=== PATIENT | male | born 1940 | race Caucasian/White ===

== ENCOUNTER → 2016-09-15 | Outpatient (CLI) | payer MEDICARE ==
[~2016-09-15] MED LIST: /ATOR40TA OR; ACET65TA OR; ASPI81TA45 OR; ATEN25TA OR; BIMATOPROST OU; KLOR10TA OR; LIPI10TA OR; LISI5TAB OR; METF500T4 OR; MULTIVIT OR; OMEP20TA7 OR; OYST500T OR; TENORETIC 50/25 OR; VITA100T5 OR; VITA400C OR; [UNRECOGNIZED DRUG - CODE]
[2016-09-15 12:02] LABS: CALCIUM LEVEL 8.4 MG/DL (8.8-10.2); CREATININE FOR GFR 1.59 MG/DL (0.70-1.30); GLOMERULAR FILTRATION RATE 45.3 (>42); POTASSIUM SERUM 4.3 MEQ/L (3.5-5.1)
== END ==
LOC: M LAB 11:05
PROVIDERS: ATTEND Thoracic Surgery (Cardiothoracic Vascular Surgery)
DX: N28.9 Disorder of kidney and ureter, unspecified (principal)

== ENCOUNTER 2016-10-01 09:54 | Inpatient (IN) | payer MEDICARE ==
[~2016-10-01] VITALS: Ht 177.8 cm; Wt 77.9 kg
[2016-10-01] MEDS ORDERED: COLA100C5 PO (10:12)
[2016-10-01] MEDS ORDERED: BIMA1SOL OU (10:12)
[2016-10-01] MEDS ORDERED: AMIO200T PO (10:12)
[2016-10-01] MEDS ORDERED: ASPI325T24 PO (10:12)
[2016-10-01] MEDS ORDERED: METO50TA7 PO (10:12)
[2016-10-01] MEDS ORDERED: MULTCAP11 PO (10:12)
[2016-10-01] MEDS ORDERED: CALC500T36 PO (10:12)
[2016-10-01] MEDS ORDERED: FURO20TA2 PO (10:12)
[2016-10-01 10:44] LABS: BASO % 0.1 % (0.0-1.0); EOS # 0.1 K/mm3 (0.0-0.50); EOS % 0.8 % (0.0-3.0); LARGE UNSTAINED CELL # 0.3 K/mm3 (0.0-0.4); LARGE UNSTAINED CELL % 1.7 % (0.0-4.0); LYMPH % 4.1 % (24.0-44.0); MEAN CORPUSCULAR HEMOGLOBIN 31.8 pg (27.0-33.0); MEAN CORPUSCULAR HGB CONC 33.2 g/dl (32.0-36.5); MEAN CORPUSCULAR VOLUME 95.8 fl (80.0-96.0); MONO # 1.4 K/mm3 (0.0-0.8); MONO % 7.7 % (0.0-5.0); NEUTROPHILS # 15.1 K/mm3 (1.8-7.7); NEUTROPHILS % 85.7 % (36.0-66.0); PLATELET COUNT, AUTOMATED 209 k/mm3 (150-450); RED CELL DISTRIBUTION WIDTH 14.4 % (11.5-14.5); WHITE BLOOD COUNT 17.6 K/mm3 (4.0-10.0)
--- NOTE | 2016-10-01 10:44 | REP ---
Clinical: Chest pain . Comparison: 03/21/2014 . Findings: The mediastinum and cardiac silhouette are stable and within normal limits for portable technique. Evidence for prior sternotomy. The The lung lowery demonstrate chronic changes without acute consolidation, effusion, or pneumothorax. Skeletal structures are intact. Impression: No obvious acute cardiopulmonary process. Signed by Giovani Rouse MD 10/01/2016 10:36 A
[2016-10-01 10:55] LABS: ALBUMIN 3.2 GM/DL (3.2-5.2); ALBUMIN/GLOBULIN RATIO 0.78 (1.00-1.93); BILIRUBIN,DIRECT 0.4 MG/DL (0.0-0.2); BILIRUBIN,TOTAL 1.6 MG/DL (0.2-1.0); CALCIUM LEVEL 8.5 MG/DL (8.8-10.2); CREATININE FOR GFR 1.53 MG/DL (0.70-1.30); GLOMERULAR FILTRATION RATE 47.3 (>42); TOTAL PROTEIN 7.3 GM/DL (6.4-8.2)
[2016-10-01] MEDS ORDERED: MULT1CHW39 PO (15:18)
[2016-10-01] MEDS ORDERED: CALC600T60 PO (15:18)
[2016-10-01] MEDS ORDERED: OMEP20CA3 PO (15:18)
[2016-10-01] MEDS ORDERED: TYLE325T5 PO (15:18)
[2016-10-01] MEDS ORDERED: K-TA10TA2 PO (15:18)
[2016-10-01] MEDS ORDERED: ATOR40TA75 PO (15:18)
[2016-10-01] MEDS ORDERED: FURO40TA2 PO (15:18)
[2016-10-01] MEDS ORDERED: DEXTROSE 50% 50 ML SYRINGE IV PRN (16:30)
[2016-10-01] MEDS ORDERED: IPRATROPIUM 0.5MG/ALBUTEROL 2.5MG INH SOL UD 3ML (DUONEB)(J7620) NEB PRN (16:30)
[2016-10-01] MEDS ORDERED: CEFTRIAXONE SOD IV SCH (17:00)
[2016-10-01] MEDS ORDERED: FLUID PLACE HOLDER IV SCH (17:00)
[2016-10-01] MEDS: HumaLOG INSULIN (NovoLOG) PER UNIT SC SCH ×2 (17:30→20:54)
[2016-10-01 18:33] VITALS: BP 156/67
[2016-10-01] MEDS: ACETAMINOPHEN TAB 650MG DOSE (2X325MG) PO PRN ×2 (19:06→23:33)
[2016-10-01] MEDS: IPRATROPIUM 0.5MG/ALBUTEROL 2.5MG INH SOL UD 3ML (DUONEB)(J7620) NEB SCH (19:21)
[2016-10-01 20:10] VITALS: BP 133/61
[2016-10-01] MEDS: ENOXAPARIN 40 MG/0.4 ML SYRINGE (J1650) SC SCH (21:23)
[2016-10-01] MEDS: cefTRIAXone SOD 2 GM in D5W MINI-BAG PLUS 50 ML IV SCH (21:24)
[2016-10-01] MEDS: POTASSIUM CHLORIDE 10 MEQ SR TABLET PO SCH (23:33)
[2016-10-01] MEDS: ATORVASTATIN 20 MG TAB PO SCH (23:33)
[2016-10-01] MEDS: METOPROLOL TART 50 MG TAB PO SCH (23:33)
[2016-10-02] MEDS: IPRATROPIUM 0.5MG/ALBUTEROL 2.5MG INH SOL UD 3ML (DUONEB)(J7620) NEB SCH ×4 (02:00→20:20)
[2016-10-02 05:52] VITALS: BP 198/60
[2016-10-02 06:08] LABS: BASO % 0.2 % (0.0-1.0); EOS # 0.2 K/mm3 (0.0-0.50); EOS % 1.2 % (0.0-3.0); LARGE UNSTAINED CELL # 0.2 K/mm3 (0.0-0.4); LARGE UNSTAINED CELL % 1.7 % (0.0-4.0); LYMPH # 0.9 K/mm3 (1.5-4.5); LYMPH % 4.8 % (24.0-44.0); MEAN CORPUSCULAR HEMOGLOBIN 31.5 pg (27.0-33.0); MEAN CORPUSCULAR HGB CONC 33.2 g/dl (32.0-36.5); MONO # 0.9 K/mm3 (0.0-0.8); MONO % 6.6 % (0.0-5.0); NEUTROPHILS # 11.4 K/mm3 (1.8-7.7); NEUTROPHILS % 85.7 % (36.0-66.0); PLATELET COUNT, AUTOMATED 190 k/mm3 (150-450); RED CELL DISTRIBUTION WIDTH 14.2 % (11.5-14.5); WHITE BLOOD COUNT 13.3 K/mm3 (4.0-10.0)
[2016-10-02 06:34] LABS: ALBUMIN 2.8 GM/DL (3.2-5.2); ALBUMIN/GLOBULIN RATIO 0.68 (1.00-1.93); CALCIUM LEVEL 8.6 MG/DL (8.8-10.2); CREATININE FOR GFR 1.39 MG/DL (0.70-1.30); GLOMERULAR FILTRATION RATE 52.9 (>42); POTASSIUM SERUM 3.4 MEQ/L (3.5-5.1); TOTAL PROTEIN 6.9 GM/DL (6.4-8.2)
--- NOTE | 2016-10-02 06:54 | HPE ---
DATE OF ADMISSION: 10/01/2016 PRIMARY CARE DOCTOR: ([facility]) ENGINEERING LAB TECHNICIAN: Dr. Armenta. CHIEF COMPLAINT: Fever. HISTORY OF PRESENT ILLNESS: The patient is a 76-year-old male who has had recent double bypass with aortic valve replacement on 09/04, presenting with fever that began last night, was 103 degrees Fahrenheit. The following morning, the fever recurred, and this time was 102. The patient also was vomiting and felt sick. He took Tylenol. By the time he arrived to the emergency department (ED), his temperature was normal, and vomiting had also resolved. He denies any history of headache, shortness of breath, chest pain, palpitations. REVIEW OF SYSTEMS: 10-point systems assessed, all negative except as stated above in history of present illness (HPI). PAST MEDICAL HISTORY: 1. Diet-controlled diabetes. 2. Hypertension. 3. Hyperlipidemia. 4. Coronary artery disease. 5. Gastroesophageal reflux disease (GERD) with a history of Jansen's esophagus. 6. Glaucoma. 7. Peripheral artery disease. PAST SURGICAL HISTORY: As mentioned above in HPI. The patient also had stenting done in the year 1999. FAMILY HISTORY: Mother had coronary artery disease (CAD) and a bypass as well. Dad had prostate cancer. An older sister who at the age of 54 had a history of CAD, uterine cancer, kidney failure. Parents had glaucoma. SOCIAL HISTORY: The patient is an ex smoker. He quite in August of 1999. Prior to that, smoked 1-2 packs a day for 40 years. Currently drinks alcohol occasionally. Denies illicit drug use. He is , has three children. He is currently retired. ALLERGIES TO MEDICATIONS: None listed. MEDICATIONS: - amiodarone 200 mg once daily - aspirin 325 mg once a day - atorvastatin 40 mg at nighttime - docusate sodium 100 mg daily - metoprolol 50 mg by mouth twice a day - omeprazole 20 mg daily - oyster calcium shell 500 mg daily - bimatoprost eye drops 0.03% to both eyes - multivitamin chew once daily - Lasix 40 mg once a day - potassium chloride 10 mEq once a day - Tylenol 650 mg by mouth every six hours as needed for pain and fever PHYSICAL EXAMINATION: VITAL SIGNS: Blood pressure 132/65, pulse 78, respiratory rate 18, oxygen saturation 92% on room air. Temperature 97.3 degrees Fahrenheit. GENERAL: He is alert and oriented to person, place and time. In no distress. Is pleasant, cooperative. HEENT: Pupils equal, round, and reactive to light. Extraocular muscles intact. Anicteric sclerae. Mucous membranes moist. CARDIOVASCULAR: S1, S2 present with regular rate. CHEST: The patient has a scar in the middle of the chest which is healing appropriately. No signs of infection. RESPIRATORY: Lungs clear to auscultation bilaterally. GASTROINTESTINAL (GI): Abdomen is soft, nontender, nondistended. Bowel sounds are normal. MUSCULOSKELETAL: No edema, cyanosis or calf tenderness. Pulses are palpable in all extremities. SKIN: Warm, dry, acyanotic without rash, ecchymosis. NEUROLOGIC: With nonfocal findings. LABORATORY DATA: Hematology: White blood cell count of 18,000, hemoglobin 10, hematocrit 29, platelets of 209. Chemistry: Sodium 134, potassium 4.0, chloride 98, bicarbonate 28, BUN 21, creatinine 1.53, glucose 121, lactic acid 1.0, calcium 8.5. LFTs within normal limits. Troponin I 0.02. BNP 519. Albumin 3.2, lipase 191. TSH 0.770. Urinalysis: Urine color is yellow. Protein negative. Ketones negative. Glucose negative. Nitrites negative. Bilirubin negative. Leukocyte esterase +3. WBC high, red blood cell 6, bacteria +3. IMAGING: Chest x-ray shows no obvious acute cardiopulmonary process. ASSESSMENT: A 76-year-old male status post recent cardiac surgery, presenting with fever, elevated white blood cell count with left shift and positive urinalysis. IMPRESSION: 1. Fever. 2. Cystitis. 3. Ruling out endocarditis. 4. Anemia from blood loss. 5. History of diet-controlled diabetes. 6. History of hypertension. 7. History of hyperlipidemia. 8. History of Jansen's esophagus. PLAN: The patient is admitted, is on Rocephin antibiotics. Awaiting culture results and echocardiogram. Resume all home medications. Deep venous thrombosis (DVT) and gastrointestinal (GI) prophylaxis with Lovenox and proton pump inhibitor (PPI).
[2016-10-02] MEDS: HumaLOG INSULIN (NovoLOG) PER UNIT SC SCH ×4 (07:30→20:51)
[2016-10-02] MEDS ORDERED: POTASSIUM CHLORIDE 10 MEQ SR TABLET PO ONE (08:00)
[2016-10-02 08:32] VITALS: BP 118/52
[2016-10-02] MEDS: AMIODARONE 200 MG TAB (PACERONE) PO SCH (08:41)
[2016-10-02] MEDS: CALCIUM CARBONATE 500 MG CHEW U/D PO SCH ×3 (08:41→17:29)
[2016-10-02] MEDS: METOPROLOL TART 50 MG TAB PO SCH ×2 (08:42→21:03)
[2016-10-02] MEDS: DOCUSATE SODIUM 100 MG CAP PO SCH (08:42)
[2016-10-02] MEDS: OMEPRAZOLE 20 MG CAP PO SCH (08:42)
[2016-10-02] MEDS: OYSTER SHELL CALCIUM 500 MG TAB PO SCH (08:42)
[2016-10-02] MEDS: FUROSEMIDE 40 MG TAB PO SCH (08:42)
[2016-10-02] MEDS: ASPIRIN ENTERIC 325 MG TAB PO SCH (08:43)
[2016-10-02] MEDS: ACETAMINOPHEN TAB 650MG DOSE (2X325MG) PO PRN (08:55)
[2016-10-02 09:37] LABS: ERYTHROCYTE SEDIMENTATION RATE 87 mm/hr (0-20)
[2016-10-02 14:00] VITALS: BP 110/57
--- NOTE | 2016-10-02 14:18 | IPNPDOC ---
Subjective Date Seen The patient was seen on 10/02/16. Subjective Chief Complaint/HPI The patient is a 76-year-old male admitted with a reason for visit of Cystitis, Fever. General: Denies: Chills, Night Sweats Constitutional: Denies: Chills, Fever Eyes: Denies: Pain, Vision change ENT: Denies: Head Aches, Ear Pain Pulmonary: Denies: Dyspnea, Cough Cardiovascular: Denies: Chest Pain, Palpitations Gastrointestinal: Denies: Nausea, Vomiting, Abdominal Pain Hematologic: Denies: Bruising, Bleeding Excessively Musculoskeletal: Reports: Other Symptoms (Flank Pain) Objective Physical Examination General Exam: Positive: Alert, Cooperative, No Acute Distress ENT Exam: Positive: Atraumatic, Mucous membr. moist/pink Neck Exam: Negative: JVD Chest Exam: Positive: Clear to auscultation, Normal air movement Heart Exam: Positive: Rate Normal, Normal S1, Normal S2 Abdomen Exam: Positive: Soft, Negative: Tenderness Extremity Exam: Negative: Tenderness, Swelling Psych Exam: Positive: Oriented x 3 Assessment /Plan Plan/VTE VTE Prophylaxis Ordered?: Yes Plan Fever/Chills, Flank Pain likely 2/2 UTI/Cystitis Urinalysis suggestive of underlying UTI/ Cystitis Urine culture pending We'll continue the patient on Rocephin White blood cell count trending downward Patient states that he is feeling much better at this time, we will continue to monitor his progress History of PAD, CAD s/p CABG x 2, and AVR on 09/[address] [facility] The patient is not displaying any clinical signs or symptoms of underlying endocarditis However blood cultures have been ordered 2-D echo has also been ordered Continue aspirin, metoprolol, statin We will continue to monitor the patient's progress Diet-controlled diabetes mellitus We will continue the patient on insulin sliding scale for now ? Hx of Atrial Fibrillation Patient noted to be in NSR at this time Cont Amoidarone Dyslipidemia Continue statin History of COPD, stable Continue albuterol as ordered GERD Continue PPI DVT prophylaxis Lovenox VS, I&O, 24H, Fishbone Vital Signs/I&O Vital Signs Date Time Temp Pulse Resp B/P (MAP) Pulse Ox O2 Delivery O2 Flow Rate FiO2 10/02/16 08:42 90 118/52 10/02/16 05:52 98.0 20 94 10/01/16 20:10 Room Air I&O- Last 24 Hours up to 6 AM 10/02/16 06:00 Intake Total 0 ml Output Total 500 ml Balance -500 ml Laboratory Data 24H LABS Laboratory Tests 2 10/01/16 20:10: Bedside Glucose (Misc Panel) 165H 10/02/16 05:45: White Blood Count 13.3H, Red Blood Count 2.98L, Hemoglobin 9.4L, Hematocrit 28.3L, Mean Corpuscular Volume 95.0, Mean Corpuscular Hemoglobin 31.5, Mean Corpuscular Hemoglobin Concent 33.2, Red Cell Distribution Width 14.2, Platelet Count 190, Neutrophils (%) (Auto) 85.7H, Lymphocytes (%) (Auto) 4.8L, Monocytes (%) (Auto) 6.6H, Eosinophils (%) (Auto) 1.2, Basophils (%) (Auto) 0.2, Neutrophils # (Auto) 11.4H, Lymphocytes # (Auto) 0.9L, Monocytes # (Auto) 0.9H, Eosinophils # (Auto) 0.2, Basophils # (Auto) 0.0, Large Unclassified Cells % 1.7 , Large Unclassified Cells # 0.2, Erythrocyte Sedimentation Rate 87H, Anion Gap 8, Glomerular Filtration Rate 52.9, Blood Urea Nitrogen 20H, Creatinine 1.39H, Sodium Level 136, Potassium Level 3.4L, Chloride Level 100, Carbon Dioxide Level 28, Calcium Level 8.6L, Aspartate Amino Transf (AST/SGOT) 12L, Alanine Aminotransferase (ALT/SGPT) 18, Alkaline Phosphatase 102, Total Bilirubin 1.0, Total Protein 6.9, Albumin 2.8L, C-Reactive Protein, Quantitative 17.60H, Albumin/Globulin Ratio 0.68L 10/02/16 11:13: Bedside Glucose (Misc Panel) 146H CBC/BMP Laboratory Tests 10/02/16 05:45 Red Blood Count 2.98 L, Mean Corpuscular Volume 95.0, Mean Corpuscular Hemoglobin 31.5, Mean Corpuscular Hemoglobin Concent 33.2, Red Cell Distribution Width 14.2, Neutrophils (%) (Auto) 85.7 H, Lymphocytes (%) (Auto) 4.8 L, Monocytes (%) (Auto) 6.6 H, Eosinophils (%) (Auto) 1.2, Basophils (%) ( Auto) 0.2, Neutrophils # (Auto) 11.4 H, Lymphocytes # (Auto) 0.9 L, Monocytes # (Auto) 0.9 H, Eosinophils # (Auto) 0.2, Basophils # (Auto) 0.0, Calcium Level 8.6 L, Aspartate Amino Transf (AST/SGOT) 12 L, Alanine Aminotransferase (ALT/ SGPT) 18, Alkaline Phosphatase 102, Total Bilirubin 1.0, Total Protein 6.9, Albumin 2.8 L Microbiology Microbiology 10/01/16 Blood Culture - Preliminary, Resulted No growth after 24 hours . All specim... 10/01/16 Blood Culture - Preliminary, Resulted No growth after 24 hours . All specim... 10/01/16 Urine Culture, Received Pending SMITA SHEPHERD MD Oct 02, 2016 14:18
[2016-10-02] MEDS: ATORVASTATIN 20 MG TAB PO SCH (21:02)
[2016-10-02] MEDS: cefTRIAXone SOD 2 GM in D5W MINI-BAG PLUS 50 ML IV SCH (21:02)
[2016-10-02] MEDS: ENOXAPARIN 40 MG/0.4 ML SYRINGE (J1650) SC SCH (21:03)
[2016-10-02] MEDS: POTASSIUM CHLORIDE 10 MEQ SR TABLET PO SCH (21:03)
[2016-10-02 22:00] VITALS: BP 111/58
[2016-10-03] MEDS: IPRATROPIUM 0.5MG/ALBUTEROL 2.5MG INH SOL UD 3ML (DUONEB)(J7620) NEB SCH ×2 (01:52→07:26)
[2016-10-03 06:00] VITALS: BP_SYST 126; BP_SYST 148; BP_DIAS 60; BP_DIAS 70
[2016-10-03 06:07] LABS: BASO % 0.2 % (0.0-1.0); EOS # 0.2 K/mm3 (0.0-0.50); EOS % 2.1 % (0.0-3.0); LARGE UNSTAINED CELL # 0.2 K/mm3 (0.0-0.4); LARGE UNSTAINED CELL % 2.6 % (0.0-4.0); LYMPH # 0.8 K/mm3 (1.5-4.5); MEAN CORPUSCULAR HEMOGLOBIN 31.2 pg (27.0-33.0); MEAN CORPUSCULAR VOLUME 94.4 fl (80.0-96.0); MONO # 0.5 K/mm3 (0.0-0.8); MONO % 6.4 % (0.0-5.0); NEUTROPHILS # 6.4 K/mm3 (1.8-7.7); NEUTROPHILS % 81.7 % (36.0-66.0); PLATELET COUNT, AUTOMATED 175 k/mm3 (150-450); RED CELL DISTRIBUTION WIDTH 14.3 % (11.5-14.5); WHITE BLOOD COUNT 7.8 K/mm3 (4.0-10.0)
--- NOTE | 2016-10-03 07:13 | ECGEPIP ---
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
[2016-10-03] MEDS: HumaLOG INSULIN (NovoLOG) PER UNIT SC SCH ×2 (07:30→12:00)
[2016-10-03 07:43] LABS: ALBUMIN 2.7 GM/DL (3.2-5.2); ALBUMIN/GLOBULIN RATIO 0.69 (1.00-1.93); BILIRUBIN,TOTAL 0.6 MG/DL (0.2-1.0); CALCIUM LEVEL 8.5 MG/DL (8.8-10.2); CREATININE FOR GFR 1.26 MG/DL (0.70-1.30); GLOMERULAR FILTRATION RATE 59.2 (>42); POTASSIUM SERUM 4.3 MEQ/L (3.5-5.1); TOTAL PROTEIN 6.6 GM/DL (6.4-8.2)
[2016-10-03 08:39] VITALS: BP 137/72
[2016-10-03] MEDS: DOCUSATE SODIUM 100 MG CAP PO SCH (08:39)
[2016-10-03] MEDS: AMIODARONE 200 MG TAB (PACERONE) PO SCH (08:39)
[2016-10-03] MEDS: METOPROLOL TART 50 MG TAB PO SCH (08:39)
[2016-10-03] MEDS: ASPIRIN ENTERIC 325 MG TAB PO SCH (08:39)
[2016-10-03] MEDS: CALCIUM CARBONATE 500 MG CHEW U/D PO SCH ×2 (08:39→12:15)
[2016-10-03] MEDS: OYSTER SHELL CALCIUM 500 MG TAB PO SCH (08:39)
[2016-10-03] MEDS: OMEPRAZOLE 20 MG CAP PO SCH (08:39)
[2016-10-03] MEDS: FUROSEMIDE 40 MG TAB PO SCH (08:39)
[2016-10-03] MEDS ORDERED: LEVA1TAB2 PO (10:32)
--- NOTE | 2016-10-03 11:06 | DS.PDOC ---
Discharge Summary General Date of Admission Oct 01, 2016 at 16:22 Date of Discharge 10/03/16 Discharge Summary PROCEDURES PERFORMED DURING STAY: None. ADMITTING DIAGNOSES: 1. .UTI/Pyelonephritis 2. .Leukocytosis DISCHARGE DIAGNOSES: 1. .UTI/Pyelonephritis 2. .Leukocytosis COMPLICATIONS/CHIEF COMPLAINT: Cystitis, Fever. HISTORY OF PRESENT ILLNESS: . 76-year-old male with past medical history of diet-controlled diabetes mellitus , hypertension, dyslipidemia, GERD, peripheral artery disease, coronary artery disease status post CABG 2 and aortic valve replacement on September 04, 2016 at [facility] presented to the ER with a chief complaint of fevers at home over the last 3 days prior to his presentation to the ER. The patient states that he has been febrile with recurrent temperatures of 102. He noted a feeling of generalized weakness, associated with fevers/chills and nausea with vomiting. In addition, the patient also stated that he had some flank pain on the right side. In the ER, patient was noted to have an elevated white blood cell count of 17.6 K. In addition, the patient's urinalysis was suggestive of a urinary tract infection. The patient was admitted to the hospitalist service for further evaluation and management. During hospitalization, the patient was treated for UTI/pyelonephritis with Rocephin. The patient's white blood cell count subsequently normalized and the patient was afebrile over the ensuing 48 hours. The patient's blood cultures were noted to be negative. The patient's antibiotics have been transitioned to by mouth. We did order 2-D echocardiogram for this patient in view of his recent aortic valve replacement surgery. I've advised patient to follow-up with his PCP for the results of this test, as the results are currently pending and may take upwards of 48 hours. At this time, the patient states that these feelings much better and is eager to return home. I have advised patient to follow-up with his primary care physician within one week. In addition, I have advised the patient to return to the ER if his symptoms were to return or persist. DISCHARGE MEDICATIONS: Please see below. ALLERGIES: Please see below. PHYSICAL EXAMINATION ON DISCHARGE: VITAL SIGNS: Please see below. General Exam: Positive: Alert, Cooperative, No Acute Distress ENT Exam: Positive: Atraumatic, Mucous membr. moist/pink Neck Exam: Negative: JVD Chest Exam: Positive: Clear to auscultation, Normal air movement Heart Exam: Positive: Rate Normal, Normal S1, Normal S2 Abdomen Exam: Positive: Soft, Negative: Tenderness Extremity Exam: Negative: Tenderness, Swelling Psych Exam: Positive: Oriented x 3 LABORATORY DATA: Please see below. IMAGING: Clinical: Chest pain . Comparison: 03/21/2014 . Findings: The mediastinum and cardiac silhouette are stable and within normal limits for portable technique. Evidence for prior sternotomy. The The lung lowery demonstrate chronic changes without acute consolidation, effusion, or pneumothorax. Skeletal structures are intact. Impression: No obvious acute cardiopulmonary process. PROGNOSIS: Medically stable ACTIVITY: As tolerated. DIET: . 2 g low sodium diet DISCHARGE PLAN: DISPOSITION: . Home DISCHARGE INSTRUCTIONS: 1. . Follow-up with primary care physician within one week 2. . Return to the ER if symptoms return or persist DISCHARGE CONDITION: Stable. TIME SPENT ON DISCHARGE: Greater than 30 minutes. Vital Signs/I&Os Vital Signs Date Time Temp Pulse Resp B/P (MAP) Pulse Ox O2 Delivery O2 Flow Rate FiO2 10/03/16 08:39 95 137/72 10/03/16 06:00 99.4 20 93 Room Air I&O- Last 24 Hours up to 6 AM 10/03/16 06:00 Intake Total 1620 ml Output Total 0 ml Balance 1620 ml Laboratory Data Labs 24H Laboratory Tests 2 10/02/16 11:13: Bedside Glucose (Misc Panel) 146H 10/02/16 16:52: Bedside Glucose (Misc Panel) 157H 10/02/16 20:37: Bedside Glucose (Misc Panel) 169H 10/03/16 05:53: White Blood Count 7.8, Red Blood Count 2.87L, Hemoglobin 8.9L, Hematocrit 27.1L , Mean Corpuscular Volume 94.4, Mean Corpuscular Hemoglobin 31.2, Mean Corpuscular Hemoglobin Concent 33.0, Red Cell Distribution Width 14.3, Platelet Count 175, Neutrophils (%) (Auto) 81.7H, Lymphocytes (%) (Auto) 7.0L, Monocytes (%) (Auto) 6.4H, Eosinophils (%) (Auto) 2.1, Basophils (%) (Auto) 0.2, Neutrophils # (Auto) 6.4, Lymphocytes # (Auto) 0.8L, Monocytes # (Auto) 0.5, Eosinophils # (Auto) 0.2, Basophils # (Auto) 0.0, Large Unclassified Cells % 2.6 , Large Unclassified Cells # 0.2, Anion Gap 8, Glomerular Filtration Rate 59.2, Blood Urea Nitrogen 23H, Creatinine 1.26, Sodium Level 136, Potassium Level 4.3# , Chloride Level 103, Carbon Dioxide Level 25, Calcium Level 8.5L, Aspartate Amino Transf (AST/SGOT) 23, Alanine Aminotransferase (ALT/SGPT) 23, Alkaline Phosphatase 103, Total Bilirubin 0.6, Total Protein 6.6, Albumin 2.7L, Albumin/ Globulin Ratio 0.69L CBC/BMP Laboratory Tests 10/03/16 05:53 Red Blood Count 2.87 L, Mean Corpuscular Volume 94.4, Mean Corpuscular Hemoglobin 31.2, Mean Corpuscular Hemoglobin Concent 33.0, Red Cell Distribution Width 14.3, Neutrophils (%) (Auto) 81.7 H, Lymphocytes (%) (Auto) 7.0 L, Monocytes (%) (Auto) 6.4 H, Eosinophils (%) (Auto) 2.1, Basophils (%) ( Auto) 0.2, Neutrophils # (Auto) 6.4, Lymphocytes # (Auto) 0.8 L, Monocytes # ( Auto) 0.5, Eosinophils # (Auto) 0.2, Basophils # (Auto) 0.0, Calcium Level 8.5 L , Aspartate Amino Transf (AST/SGOT) 23, Alanine Aminotransferase (ALT/SGPT) 23, Alkaline Phosphatase 103, Total Bilirubin 0.6, Total Protein 6.6, Albumin 2.7 L FSBS Laboratory Tests Test 10/02/16 11:13 10/02/16 16:52 10/02/16 20:37 Range/Units Bedside Glucose (Misc Panel) 146 157 169 83-110 MG/DL Microbiology Microbiology 10/01/16 Blood Culture - Preliminary, Resulted No growth after 24 hours . All specim... 10/01/16 Blood Culture - Preliminary, Resulted No Growth after 48 hours. All Specime... 10/01/16 Urine Culture, Received Pending Discharge Medications Scheduled (Bimatoprost) 0.03 % Lore, 1 DOROTHEA OU QHS, (Reported) (Multivitamin Adult) 1 Chw Chw, 1 CHW PO D, (Reported) Amiodarone HCl (Amiodarone HCl) 200 Mg Tab, 200 MG PO DAILY, (Reported) Aspirin (Aspirin EC) 325 Mg Tabec, 325 MG PO DAILY, (Reported) Atorvastatin Calcium (Atorvastatin Calcium) 40 Mg Tab, 40 MG PO QHS, (Reported) Calcium Carbonate (Calcium) 600 Mg Tab, 600 MG PO BID, (Reported) Docusate Sodium (Colace) 100 Mg Cap, 100 MG PO DAILY, (Reported) Furosemide (Furosemide) 40 Mg Tab, 40 MG PO DAILY, (Reported) Levofloxacin Hemihydrate (Levaquin) 500 Mg Tab, 500 MG PO DAILY Metoprolol Tartrate (Metoprolol Tartrate) 50 Mg Tab, 50 MG PO BID, (Reported) Omeprazole (Omeprazole) 20 Mg Cap, 20 MG PO DAILY, (Reported) Oyster Shell Calcium (Calcium) 500 Mg Tab, 500 MG PO DAILY, (Reported) Potassium Chloride (K-Tab) 10 Meq Tab, 10 MEQ PO QPM, (Reported) Scheduled PRN Acetaminophen (Tylenol) 325 Mg Tab, 650 MG PO Q6H PRN for PAIN, (Reported) Allergies Coded Allergies: No Known Drug Allergy (Verified Allergy, Unknown, 10/01/16) SMITA SHEPHERD MD Oct 03, 2016 11:06
[2016-10-03] MEDS ORDERED: BACT800T5 PO (12:08)
--- NOTE | 2016-10-03 19:35 | ECHO ---
DATE OF PROCEDURE: 10/03/2016 REFERRING PHYSICIAN: Mckenzie Good MD INDICATION: Fever, recent aortic valve replacement and bypass surgery. HEIGHT: 70 inches WEIGHT: 78 kg. DIMENSIONS: IVS: 1.2 LV: 5.2 LVPW: 1.2 LA: 5.2 Aorta: 3.3 FINDINGS: The study is of acceptable technical quality. Left ventricle is normal size and systolic function with estimated ejection fraction (EF) around 65%. Mild left ventricular hypertrophy is noted. Right ventricle does not appear enlarged. Both atria are at least moderately enlarged. 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 The visualization was rather limited, but grossly appears normal. I do not appreciate the presence of any vegetations. Mitral and tricuspid valves also appear normal. Pulmonic valve was not well seen. Trivial pericardial effusion is noted. Inferior vena cava is normal size. Aortic root appears normal. Aortic arch and abdominal aorta were not well seen. Doppler interrogation reveals no aortic stenosis (peak gradient across the valve is 20, mean gradient 11 mmHg) and no insufficiency. There is mild mitral insufficiency and mild tricuspid insufficiency. Calculated pulmonary artery pressure is within normal limits. Mitral inflow pattern and tissue Doppler imaging of mitral annulus reveal grade 1 diastolic dysfunction. CONCLUSIONS: 1. Study is of acceptable technical quality. 2. Normal LV size with normal LV systolic function and grade 1 diastolic dysfunction. 3. Poorly visualized bioprosthesis in aortic position with no significant gradient and no insufficiency. 4. Mild mitral and tricuspid insufficiency. 5. Normal central venous pressure and likely normal pulmonary artery pressure. 6. Trace pericardial effusion. COMMENT: Subacute bacterial endocarditis (SBE) prophylaxis is recommended. If high clinical suspicion for bacterial endocarditis is present then transesophageal echocardiogram will provide much better visualization of aortic bioprosthesis.
== END 2016-10-03 12:44 | disposition home or self-care (01) | DRG 690 ==
LOC: M ED 09:54 → M ED INP 16:22 → M MSPAV 18:18
PROVIDERS: ADMIT Hospitalist; ATTEND Internal Medicine
DX: N30.00 Acute cystitis without hematuria (principal); E11.51 Type 2 diabetes mellitus with diabetic peripheral angiopathy without gangrene; I10 Essential (primary) hypertension; E78.5 Hyperlipidemia, unspecified; I25.10 Atherosclerotic heart disease of native coronary artery without angina pectoris; K21.9 Gastro-esophageal reflux disease without esophagitis; J44.9 Chronic obstructive pulmonary disease, unspecified; H40.9 Unspecified glaucoma; K22.70 Barrett's esophagus without dysplasia; Z87.891 Personal history of nicotine dependence; Z79.82 Long term (current) use of aspirin; Z79.899 Other long term (current) drug therapy; Z95.2 Presence of prosthetic heart valve; Z95.1 Presence of aortocoronary bypass graft

== ENCOUNTER → 2016-11-03 | Outpatient (RCR) | payer MEDICARE ==
[~2016-11-03] MED LIST changes: +AMIO200T PO; +ASPI325T24 PO; +ATOR40TA75 PO; +BACT800T5 PO; +BIMA1SOL OU; +CALC500T36 PO; +CALC600T60 PO; +COLA100C5 PO; +FURO20TA2 PO; +FURO40TA2 PO; +K-TA10TA2 PO; +LEVA1TAB2 PO; +METO50TA7 PO; +MULT1CHW39 PO; +MULTCAP11 PO; +OMEP20CA3 PO; +TYLE325T5 PO
== END ==
LOC: M CR 10-16 08:53
PROVIDERS: ATTEND Internal Medicine Cardiovascular Disease
DX: Z51.89 Encounter for other specified aftercare (principal); Z95.2 Presence of prosthetic heart valve; Z95.1 Presence of aortocoronary bypass graft

== ENCOUNTER 2016-12-03 12:42 | Outpatient (RCR) | payer MEDICARE | END 2016-12-04 | LOC: M CR 12:42 | PROVIDERS: ATTEND Internal Medicine Cardiovascular Disease | DX: Z51.89 Encounter for other specified aftercare (principal); Z95.2 Presence of prosthetic heart valve; Z95.1 Presence of aortocoronary bypass graft ==

== ENCOUNTER 2017-01-02 13:07 | Outpatient (RCR) | payer MEDICARE | END 2017-01-03 | LOC: M CR 13:07 | PROVIDERS: ATTEND Internal Medicine Cardiovascular Disease | DX: Z51.89 Encounter for other specified aftercare (principal); Z95.1 Presence of aortocoronary bypass graft; Z95.2 Presence of prosthetic heart valve ==

== ENCOUNTER → 2021-02-01 | Outpatient (REF) | payer MEDICARE ==
[~2021-02-01] MED LIST changes: -/ATOR40TA OR; -AMIO200T PO; +AMIO200T3 PO; +ASPI-255 PO; -ASPI325T24 PO; -CALC500T36 PO; +CALC500T61 PO; +LIPI1TAB2 OR; -MULT1CHW39 PO; +MULT200T7 PO; +OMEP1CAP73 PO; -OMEP20CA3 PO
[2021-02-01 11:56] LABS: APPEARANCE, URINE HAZY (CLEAR); BACTERIA, URINE AUTO NEGATIVE (NEGATIVE); BILIRUBIN, URINE AUTO NEGATIVE (NEGATIVE); BLOOD, URINE BLOOD 1+ (NEGATIVE); COLOR, URINE YELLOW (YELLOW); GLUCOSE, URINE (UA) AUTO NEGATIVE (NEGATIVE); KETONE, URINE AUTO NEGATIVE (NEGATIVE); LEUKOCYTE ESTERASE, URINE AUTO 3+ (NEGATIVE); MUCUS, URINE SMALL (NEGATIVE); NITRITE, URINE AUTO NEGATIVE (NEGATIVE); PROTEIN, URINE AUTO NEGATIVE (NEGATIVE); RBC, URINE AUTO 1 /HPF (0-3); SPECIFIC GRAVITY URINE AUTO 1.011 (1.002-1.035); SQUAMOUS EPITHELIAL CELL UR AU 0 /HPF (0-6); WBC, URINE AUTO 137 /HPF (0-3)
== END ==
LOC: M LAB REF 11:19
PROVIDERS: ATTEND Physician Assistant
DX: R30.0 Dysuria (principal)

== ENCOUNTER → 2021-04-09 | Outpatient (REF) | payer MEDICARE ==
[2021-04-09 17:31] LABS: APPEARANCE, URINE CLEAR (CLEAR); BACTERIA, URINE AUTO 1+ (NEGATIVE); BILIRUBIN, URINE AUTO NEGATIVE (NEGATIVE); BLOOD, URINE BLOOD 2+ (NEGATIVE); COLOR, URINE AMBER (YELLOW); GLUCOSE, URINE (UA) AUTO NEGATIVE (NEGATIVE); KETONE, URINE AUTO NEGATIVE (NEGATIVE); LEUKOCYTE ESTERASE, URINE AUTO 3+ (NEGATIVE); MUCUS, URINE SMALL (NEGATIVE); NITRITE, URINE AUTO POSITIVE (NEGATIVE); PROTEIN, URINE AUTO NEGATIVE (NEGATIVE); RBC, URINE AUTO 2 /HPF (0-3); SPECIFIC GRAVITY URINE AUTO 1.006 (1.002-1.035); SQUAMOUS EPITHELIAL CELL UR AU 0 /HPF (0-6); WBC, URINE AUTO 24 /HPF (0-3)
== END ==
LOC: M LAB REF 16:34
PROVIDERS: ATTEND Physician Assistant Medical
DX: N39.0 Urinary tract infection, site not specified (principal)

== ENCOUNTER → 2022-06-03 | Outpatient (REF) | payer MEDICARE ==
[~2022-06-03] MED LIST changes: -AMIO200T3 PO; +AMIO200T49 PO; +BIMA0.036 OU; -BIMA1SOL OU
[2022-06-03 18:00] LABS: APPEARANCE, URINE CLEAR (CLEAR); BACTERIA, URINE AUTO 1+ (NEGATIVE); BILIRUBIN, URINE AUTO NEGATIVE (NEGATIVE); BLOOD, URINE BLOOD 1+ (NEGATIVE); COLOR, URINE YELLOW (YELLOW); GLUCOSE, URINE (UA) AUTO NEGATIVE (NEGATIVE); KETONE, URINE AUTO NEGATIVE (NEGATIVE); LEUKOCYTE ESTERASE, URINE AUTO 2+ (NEGATIVE); NITRITE, URINE AUTO NEGATIVE (NEGATIVE); PROTEIN, URINE AUTO NEGATIVE (NEGATIVE); RBC, URINE AUTO 2 /HPF (0-3); SQUAMOUS EPITHELIAL CELL UR AU 1 /HPF (0-6); UROBILINOGEN, URINE AUTO 0.2 mg/dL (0.0-2.0); WBC, URINE AUTO 12 /HPF (0-3)
== END ==
LOC: M LAB REF 17:19
PROVIDERS: ATTEND Physician Assistant Medical
DX: N39.0 Urinary tract infection, site not specified (principal)